=== PATIENT | female | born 1950 | race Caucasian/White ===

== ENCOUNTER 2017-05-30 19:06 | Emergency (ER) | payer MEDICARE, OTHER ==
[2017-05-30 21:16] VITALS: BP 141/73
[2017-05-30] MEDS ORDERED: Ibuprofen TAB* 600 MG PO ONE (21:17)
--- NOTE | 2017-05-30 22:01 | RAD ---
INDICATION: Right wrist injury. TECHNIQUE: 3 views of the right wrist were obtained. FINDINGS: The bones appear osteopenic. There is diffuse soft tissue swelling. No fracture is seen. There is moderate to severe osteoarthritic change in the first carpal metacarpal joint. IMPRESSION: SOFT TISSUE SWELLING, NO FRACTURE IS SEEN. IF THE PATIENT'S SYMPTOMS PERSIST RECOMMEND FOLLOW-UP IMAGING.
--- NOTE | 2017-05-30 22:04 | RAD ---
INDICATION: Right hand injury. TECHNIQUE: 4 views of the right hand were obtained. FINDINGS: There is diffuse soft tissue swelling. The bones appear osteopenic. No fracture is seen. There appears to be subluxation of the third metacarpal phalangeal joint. There is moderate to severe joint space narrowing, hypertrophic and erosive change present within the proximal and distal interphalangeal joints most consistent with an inflammatory arthropathy. IMPRESSION: 1. NO EVIDENCE FOR ACUTE FRACTURE. IF THE PATIENT'S SYMPTOMS PERSIST RECOMMEND FOLLOW-UP IMAGING. 2. FINDINGS MOST CONSISTENT WITH AN INFLAMMATORY ARTHROPATHY.
--- NOTE | 2017-05-30 22:05 | UC ---
Upper Extremity HPI - HPI Summary HPI Summary: 67 y/o female w/ PMHX Dementia presents to the urgent care accompany by daughter c/o RT wrist pain s/p fall on ice today AT 1500. Pt's daughter states she heard pt fall down, but actual fall was unwitnessed. She found her on her back. Pt is A&OX3 and she states that she slipped on the ice b/c her boots are old and she fell on her back and put most of her weight on the RT arm. She denies LOC or hitting her head. She is not taking any blood thinners and denies TAMAYO, neck pain, , back pain, SOB, chest pain, abdominal pain, N/V/D, numbness or tingling sensation over the RT arm. PT states pain is 8/10 localized on RT wrist w/ swelling. Daughter also reports Pt also fell accidentally about 3 weeks ago and and PCP did X-rays of RT arm and Dx w/ RT arm tendonitis. Daughter has given ibuprofen PO to alleviate symptoms. - History of Current Complaint Chief Complaint: UCUpperExtremity Stated Complaint: RIGHT WRIST INJURY / PT FELL ON ICE Time Seen by Provider: 05/30/17 22:01 Hx Obtained From: Patient, Family/Supervisor [employer] - daughter Hx Last Menstrual Period: age 41 ?: No Onset/Duration: Sudden Onset, Lasting Hours - 6hrs, Still Present Severity Initially: Moderate Severity Currently: Moderate Pain Intensity: 5 Pain Scale Used: 0-10 Numeric Location Of Pain: Is Discrete @ - RT wrist pain Character: Sharp Aggravating Factor(s): Movement, Lifting Alleviating Factor(s): Ice, Rest Associated Signs And Symptoms: Positive: Swelling. Negative: Redness, Fever, Weakness, Numbness/Tingling - Risk Factors Non-Orthopedic Risk Factor: Negative DVT Risk Factors: Negative Septic Arthritis Risk Factor: Negative - Allergies/Home Medications Allergies/Adverse Reactions: Allergies Allergy/AdvReac Type Severity Reaction Status Date / Time No Known Allergies Allergy Verified 05/30/17 20:56 Home Medications: Home Medications Docusate CAP* [Colace Cap*] 1 cap BID 05/30/17 [History Confirmed 05/30/17] Sertraline* [Zoloft*] 100 mg DAILY 05/30/17 [History Confirmed 05/30/17] PMH/Surg Hx/FS Hx/Imm Hx Previously Healthy: Yes Cardiovascular History: Hypertension GI/ History: Gastroesophageal Reflux Other Neurological History: Dementia - Surgical History Surgical History: Yes Surgery Procedure, Year, and Place: LUMPS REMOVED FROM BREASTS - Family History Known Family History: Positive: Hypertension - Social History Occupation: Retired Lives: With Family Alcohol Use: None Substance Use Type: None Smoking Status (MU): Never Smoked Tobacco - Immunization History Vaccination Up to Date: Yes Review of Systems Constitutional: Negative Skin: Negative Eyes: Negative ENT: Negative Respiratory: Negative Cardiovascular: Negative Gastrointestinal: Negative Genitourinary: Negative Motor: Negative Neurovascular: Negative Musculoskeletal: Decreased ROM - RT wrist, Other: - RT wrist pain s/p fall Neurological: Negative Psychological: Negative Is Patient Immunocompromised?: No All Other Systems Reviewed And Are Negative: Yes Physical Exam Triage Information Reviewed: Yes Vital Signs: Initial Vital Signs Temp 96.9 F 05/30/17 21:01 Pulse 60 05/30/17 21:01 Resp 16 05/30/17 21:01 BP 141/73 05/30/17 21:01 Pulse Ox 98 05/30/17 21:01 - Additional Comments Vital Signs Reviewed: Yes General: Well-Appearing, No Pain Distress, Well-Nourished - female w/o any apparent distress Eyes: Positive: Conjunctiva Clear - PERRLA, EOMI ENT: Positive: Normal ENT inspection, Hearing grossly normal, Pharynx normal, TMs normal, Uvula midline Neck: Positive: Supple, Nontender, No Lymphadenopathy Respiratory: Positive: Chest non-tender, Lungs clear, Normal breath sounds, No respiratory distress Cardiovascular: Positive: RRR, No Murmur, Pulses Normal, Brisk Capillary Refill Abdomen Description: Positive: Nontender, No Organomegaly, Soft. Negative: CVA Tenderness (R), CVA Tenderness (L) Bowel Sounds: Positive: Present Musculoskeletal: Positive: Strength Intact, Other: Neurological Exam: Normal Musculoskeletal: Positive: Wrist: the R wrist is without obvious asymmetry or deformity when compared to the L wrist. No surface trauma, open wounds, mild sweeling on the dorsal side of Rt wrist w/o obvious deformity. Tenderness to palpation at the same area. No overlying erythema or warmth. No bony crepitus. . No scaphoid fullness or tenderness to direct palpation or axial load. Decreased ROM due to pain., and decrease ROM of Rt thumb, no swelling observed. Motor/sensory function of ulnar, radial, median nerves intact. Ulnar and radial pulses intact. Psychological Exam: Normal Skin Exam: Normal Upper Extremity Course/Dx - Course Course Of Treatment: 67 y/o female w/ PMHX Dementia presents to the urgent care accompany by daughter c/o RT wrist pain s/p fall on ice today AT 1500. Pt's daughter states she heard pt fall down, but actual fall was unwitnessed. She found her on her back. Pt is A&OX3 and she states that she slipped on the ice b/ c her boots are old and she fell on her back and put most of her weight on the RT arm. She denies LOC or hitting her head. She is not taking any blood thinners and denies TAMAYO, neck pain, , back pain, SOB, chest pain, abdominal pain , N/V/D, numbness or tingling sensation over the RT arm. PT states pain is 8/10 localized on RT wrist w/ swelling. Daughter also reports Pt also fell accidentally about 3 weeks ago and and PCP did X-rays of RT arm and Dx w/ RT arm tendonitis. Daughter has given ibuprofen PO to alleviate symptoms.Hx obtained. Pt w/ Hx of Carpal tunnel release surgery on the RT wrist 3 y/rs ago. RT wrist X-ray ordered and RT hand X-ray ordered: impresions: Soft tissue swelling observed, no no fracture, dislocation, Osteoarthritic changes in the Rt first MCPJ and inflamatory arthropathy observed as per radiologist. Pt's hand immobilized w/ Thumb spica and advised to take Tylenol Po to alleviate symptoms. F/u w/ Orthopedic in 1 weeks if not improvement of symptoms. Pt's BP is elevated today advised to decrease salt in diet, monitor BP and f/u with PCP for further management. Daughter and PT understood and agreed w/ D/C instuctions - Differential Dx/Diagnosis Differential Diagnosis/HQI/PQRI: Arthritis, Contusion, Fracture (Closed), Strain , Sprain Provider Diagnoses: 1- Acute RT wrist pain s/p fall. 2- Uncontrolled HTN - Physician Notification/Consults Discussed Patient Care With: Lilly Long - Dr long agreed w/ Pt's plan of care Discharge - Discharge Plan Condition: Stable Disposition: HOME Patient Education Materials: Low-Sodium Diet (ED), Wrist Sprain (ED) Referrals: Juanjose Hines MD [Medical Doctor] - 1 Week Liliana Mukherjee MD [Primary Care Provider] - 1 Week Additional Instructions: 1-Please continue taking Tyelnol/ Ibuprofen PO as directed to alleviate pain and swelling. 2-Please apply ice, keep your wrist immobilized with the splint. 3- Please f/u with Orthopedic Dr Hines or your PCP in 1 week is not improvement of symptoms for further evaluation and treatment. 4-Your BP is elevated today. please decrease salt in your diet, monitor BP and if it continues to be elevated please f/u with your PCP for further management
== END 2017-05-30 22:46 | disposition home or self-care (01) ==
LOC: UCCORT 19:06
DX: M25.531 Pain in right wrist (principal); W00.0XXA Fall on same level due to ice and snow, initial encounter; Y93.9 Activity, unspecified; Y92.9 Unspecified place or not applicable; I10 Essential (primary) hypertension; M19.041 Primary osteoarthritis, right hand
CPT/HCPCS: 99213; A9270-GY; G0463

== ENCOUNTER 2018-05-28 18:55 | Emergency (ER) | payer MEDICARE, OTHER ==
[2018-05-28 19:19] VITALS: BP 140/80
[2018-05-28] MEDS ORDERED: Acyclovir* 200 MG CAP PO ONE (19:43)
--- NOTE | 2018-05-28 19:45 | UC ---
Throat Pain/Nasal Abhi HPI - HPI Summary HPI Summary: C/O left lower lateral lip swelling with sores inside the mouth. Trying blistex and aloe topically without relief. - History of Current Complaint Chief Complaint: UCGeneralIllness Stated Complaint: SWOLLEN LIP Time Seen by Provider: 05/28/18 19:28 Hx Obtained From: Patient, Family/Sample Room Supervisor Hx From Patient Unobtainable Due To: Dementia Hx Last Menstrual Period: age 41 ?: No Onset/Duration: Sudden Onset, Lasting Days - 2, Worse Since - onset Severity: Moderate Pain Intensity: 0 Cough: None Associated Signs & Symptoms: Positive: Rash - blisters on the lip. Negative: Dysphagia, Drooling, Nasal Discharge, Fever - Allergies/Home Medications Allergies/Adverse Reactions: Allergies Allergy/AdvReac Type Severity Reaction Status Date / Time No Known Allergies Allergy Verified 05/28/18 19:19 Home Medications: Home Medications Omeprazole CAP (NF) [Prilosec CAP* 20 MG] 20 mg PO DAILY 05/28/18 [History Confirmed 05/28/18] Sennosides [Senna] 1 tab BEDTIME 05/28/18 [History Confirmed 05/28/18] PMH/Surg Hx/FS Hx/Imm Hx Neurological History: Dementia Cancer History: Breast Cancer - Surgical History Surgical History: Yes Surgery Procedure, Year, and Place: LUMPS REMOVED FROM BREASTS - Family History Known Family History: Positive: Hypertension, Diabetes - Social History Occupation: Disabled Lives: With Family Alcohol Use: None Substance Use Type: None Smoking Status (MU): Never Smoked Tobacco - Immunization History Vaccination Up to Date: Yes Review of Systems All Other Systems Reviewed And Are Negative: Yes ENT: Positive: Other - lip swelling with sores. Is Patient Immunocompromised?: No Physical Exam Triage Information Reviewed: Yes Appearance: Well-Appearing, Pain Distress - mild, Obese Vital Signs: Initial Vital Signs Temp 97.2 F 05/28/18 19:10 Pulse 71 05/28/18 19:10 Resp 18 05/28/18 19:10 BP 140/80 05/28/18 19:10 Pulse Ox 98 05/28/18 19:10 Vital Signs Reviewed: Yes Eyes: Positive: Conjunctiva Inflamed ENT: Positive: Pharynx normal, TMs normal, Other - left lower lip with swelling , redness, tenderness and ulcers Respiratory Exam: Normal Cardiovascular: Positive: RRR, Murmur:Sys:Grade _?_/ - 2/6 Musculoskeletal Exam: Normal Neurological: Positive: Alert Psychological: Positive: Normal Response To Family Skin Exam: Normal Throat Pain/Nasal Course/Dx - Differential Dx/Diagnosis Differential Diagnosis/HQI/PQRI: Laryngitis, Patric's Angina, Pharyngitis Provider Diagnosis: Herpes labialis Discharge - Sign-Out/Discharge Documenting (check all that apply): Patient Departure All imaging exams completed and their final reports reviewed: No Studies - Discharge Plan Condition: Stable Disposition: HOME Prescriptions: ValACYclovir (*) [Valtrex 500 mg (*)] 500 mg PO BID #10 tab Patient Education Materials: Oral Herpes Simplex Virus Infections (ED), Valacyclovir (By mouth) Referrals: Liliana Mukherjee MD [Primary Care Provider] - - Billing Disposition and Condition Condition: STABLE Disposition: Home
== END 2018-05-28 19:53 | disposition home or self-care (01) ==
LOC: UCCORT 18:55
DX: B00.1 Herpesviral vesicular dermatitis (principal); F03.90 Unspecified dementia, unspecified severity, without behavioral disturbance, psychotic disturbance, mood disturbance, and anxiety
CPT/HCPCS: 99212; A9270-GY; G0463